=== PATIENT | female | born 1960 | race Caucasian/White ===

== ENCOUNTER 2020-03-17 14:10 | Emergency (ER) | payer MEDICARE, OTHER ==
[2020-03-17] MEDS ORDERED: PSEUDOEPHEDRINE 30 MG TABLET PO STA (14:26)
[2020-03-17] MEDS ORDERED: SODIUM CHLORIDE 0.9% 1,000 ML IV STA (14:26)
[2020-03-17] MEDS ORDERED: SODIUM CHLORIDE 0.9% IV STA (14:28)
[2020-03-17] MEDS ORDERED: BAMLANIVIMAB IV STA (14:28)
--- NOTE | 2020-03-17 14:30 | ED Physician Documentation ---
History of Present Illness - Stated complaint Stated Complaint: C+ - Chief complaint Chief Complaint: General - History obtained from History obtained from: Patient - Additonal information Additional information: Tested positive for COVID-19 a little over a week ago. She was presymptomatic when she would got tested because her was sick. She became sick actually 7 or 8 days ago and had typical symptoms. Now the worst thing is she is got a lot of postnasal drip and when she has the postnasal drip she feels short of breath. She still has ongoing body aches but no current fevers. She is not short of breath when she does not have postnasal drip. Comorbidities include asthma and obesity. Review of Systems Constitutional: reports: Myalgias, Fatigue. denies: Fever, Chills Nose: reports: Rhinorrhea / runny nose Throat: denies: Sore throat Respiratory: reports: Dyspnea, Cough PD PAST MEDICAL HISTORY - Present Medications Home Medications: Ambulatory Orders Medication Instructions Recorded Confirmed Levofloxacin [Levaquin] 500 mg PO BID 03/17/20 03/17/20 oxyCODONE [Roxicodone] 10 mg PO PRN PRN 03/17/20 03/17/20 - Allergies Allergies/Adverse Reactions: Allergies Allergy/AdvReac Type Severity Reaction Status Date / Time azithromycin Allergy Itching Verified 03/17/20 14:33 ibuprofen AdvReac Unknown Unknown Verified 03/17/20 14:33 PD ED PE NORMAL - Vitals Vital signs reviewed: Yes - General General: Alert and oriented X 3, No acute distress - HEENT HEENT: PERRL, EOMI - Neck Neck: Supple, no meningeal sign, No bony TTP - Cardiac Cardiac: RRR, No murmur - Respiratory Respiratory: No respiratory distress, Clear bilaterally - Abdomen Abdomen: Non tender - Back Back: No spinal TTP - Derm Derm: No rash - Neuro Neuro: Alert and oriented X 3, Normal speech - Psych Psych: Normal mood, Normal affect Results - Vitals Vitals: Vital Signs - 24 hr 03/17/20 14:23 Temperature 36.9 C Heart Rate 101 H Respiratory 22 Rate Blood Pressure 134/99 H O2 Saturation 96 Oxygen O2 Source Room air PD MEDICAL DECISION MAKING - ED course ED course: Given her BMI and underlying asthma she does fit criteria for bamlanivimab, And pharmacist BELINDA Molina is consulted for administration. She also has going to receive some IV fluids and Sudafed. Departure - Departure Disposition: 01 Home, Self Care Clinical Impression: COVID-19, Congestion of respiratory tract Condition: Good Instructions: ED Viral Syndrome Comments: Your vital signs are excellent today, return if worsening but hopefully the medications we gave you should be helpful in fighting off the disease. You still need to strictly quarantine until [facility] says you can leave your house. You should not leave your house at all. 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 That should be helpful with the congestion.
[2020-03-17 18:06] VITALS: BP 121/70
== END 2020-03-17 18:25 | disposition home or self-care (01) ==
LOC: ED 14:10
DX: U07.1 COVID-19 (principal); J98.8 Other specified respiratory disorders; J45.909 Unspecified asthma, uncomplicated; E66.9 Obesity, unspecified; Z68.41 Body mass index [BMI] 40.0-44.9, adult
CPT/HCPCS: 99284; A9270; Q0239

== ENCOUNTER 2022-07-07 01:46 | Emergency (ER) | payer MEDICARE, OTHER ==
[2022-07-07] MEDS ORDERED: IPRATROPIUM/ALBUTEROL 3 ML NEB INH STA (02:43)
--- NOTE | 2022-07-07 02:43 | ED Physician Documentation ---
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 She used albuterol MDI three times without adequate relief. She feels generalized chest constriction which she says is typical for her asthma exacerbations. She says she often does well with PO steroids when she has asthma exacerbations. Denies fever, denies cough (except occasional dry cough). Review of Systems Cardiac: reports: Reviewed and negative Respiratory: reports: Dyspnea, Cough (minimal dry cough), Wheezing. denies: Hemoptysis PD PAST MEDICAL HISTORY - Past Medical History Cardiovascular: None Respiratory: Asthma Neuro: None Endocrine/Autoimmune: None GI: None STUCCO WORKER: None : None HEENT: None Psych: None Musculoskeletal: None Derm: None - Past Surgical History Past Surgical History: Yes General: Gastric surgery Ortho: Spine surgery - Present Medications Home Medications: Ambulatory Orders Medication Instructions Recorded Confirmed oxyCODONE [Roxicodone] 10 mg PO PRN PRN 03/17/20 07/07/22 Albuterol Sulf [Ventolin Hfa 1 - 2 puffs INH Q4HR PRN #1 gm 10/26/21 07/07/22 Inhaler] predniSONE [Deltasone] 40 mg PO DAILY 3 Days #6 tablet 07/07/22 - Allergies Allergies/Adverse Reactions: Allergies Allergy/AdvReac Type Severity Reaction Status Date / Time azithromycin Allergy Itching Verified 07/07/22 02:20 ibuprofen AdvReac Unknown Unknown Verified 07/07/22 02:20 - Social History Does the pt smoke?: No Smoking Status: Never smoker Does the pt drink ETOH?: No Does the pt have substance abuse?: No - POLST Patient has POLST: No PD ED PE NORMAL - Vitals Vital signs reviewed: Yes - General General: Alert and oriented X 3, No acute distress, Well developed/nourished - HEENT HEENT: Moist mucous membranes - Cardiac Cardiac: RRR, No murmur - Respiratory Respiratory: No respiratory distress PD ED PE EXPANDED - Respiratory Respiratory: Other (good air flow bilaterally and equal breath sounds. there are course mid/end-expiratory breath sounds on exhale bilaterally, L>R and mostly in peripheral bunn) Results - Vitals Vitals: Oxygen O2 Source Room air - Rads (name of study) chest xray Relevant Findings:: Prelim report reviewed, EMP independent interpretation of test (I reviewed these images and my interpretation is no active/acute disease , including pneumothorax, pneumonia, pleural effusion), See rad report PD Medical Decision Making - ED course Complexity details: reviewed results, re-evaluated patient, considered differential, d/w patient ED course: patient is in NAD on exam and reevaluation prior to discharge, lungs CTA on reexamination after duoneb. She is reporting excellent relief of her symptoms after the duoneb. Given 40mg PO prednisone and rx for same. return precautions discussed. Departure - Departure Disposition: Home, Self Care Clinical Impression: Asthma exacerbation Condition: Good Instructions: ED Reactive Airway Disease Prescriptions: predniSONE [Deltasone] 40 mg PO DAILY 3 Days #6 tablet Comments: There were no concerning findings on the chest x-ray. The chest x-ray did not have any evidence of an infection such as pneumonia. I have electronically submitted a prescription for 3 more days of once-daily prednisone to the [facility] in [place]. You are given a dose in the emergency department and thus the total number of days of prednisone will be four. Discharge Date/Time: 07/07/22 04:05
[2022-07-07] MEDS ORDERED: predniSONE 20 MG TABLET PO STA (03:46)
[2022-07-07 04:05] VITALS: BP 145/76
--- NOTE | 2022-07-07 07:40 | XRAY Report ---
PROCEDURE: Chest 2 View X-Ray INDICATIONS: dyspnea, course breath sounds TECHNIQUE: 2 views of the chest were acquired. COMPARISON: None. FINDINGS: Surgical changes and devices: Surgical fixation in the neck. Lungs and pleura: No pleural effusions or pneumothorax. Lungs are clear. Mediastinum: Mediastinal contours appear normal. Heart size is normal. Bones and chest wall: No suspicious bony lesions. Overlying soft tissues appear unremarkable. IMPRESSION: No acute cardiopulmonary abnormality Findings above correspond with preliminary findings by [facility]. Reviewed by: Iron Long on 07/07/2022 7:39 AM PDT Approved by: Iron Long on 07/07/2022 7:39 AM PDT Station ID: [id number]
== END 2022-07-07 04:05 | disposition home or self-care (01) ==
LOC: ED 01:46
DX: J45.901 Unspecified asthma with (acute) exacerbation (principal)
CPT/HCPCS: 71046; 94640; 94664; 99283; 99284; J7512